=== PATIENT | male | born 1970 | race Caucasian/White ===

== ENCOUNTER → 2018-04-13 | Outpatient (CLI) | payer BC ==
[~2018-04-13] MED LIST: ATOR10 PO; ATOR80 PO; CELE100 PO; Hydrochloroth12.5 MG PO; LISI5 PO; METF500 PO; METO50 PO; Metformin HCl1000 MG PO; PIOG15 PO; POTCHL10ER PO; [UNRECOGNIZED DRUG - OTHER]
[2018-04-13 16:07] LABS: BASOPHILS ABSOLUTE AUTO 0.04 K/mm3 (0.00-0.23); BASOPHILS PERCENT AUTO 1 % (0-2); EOSINOPHILS ABSOLUTE AUTO 0.15 K/mm3 (0.00-0.68); EOSINOPHILS PERCENT AUTO 2 % (0-6); Hemoglobin 13.6 g/dL (13.5-17.5); IMMATURE GRAN ABSOLUTE AUTO 0.03 K/mm3 (0.00-0.10); IMMATURE GRAN PERCENT AUTO 0 % (0-1); LYMPHOCYTES ABSOLUTE AUTO 2.28 K/mm3 (0.84-5.20); LYMPHOCYTES PERCENT AUTO 34 % (21-46); MONOCYTES ABSOLUTE AUTO 0.55 K/mm3 (0.16-1.47); MONOCYTES PERCENT AUTO 8 % (4-13); Mean Corpuscular HGB 27.3 pg (26.0-34.0); Mean Corpuscular Volume 80 fL (80-100); Mean Platelet Volume 9.7 fL (9.1-12.4); NEUTROPHILS ABSOLUTE AUTO 3.72 K/mm3 (1.96-9.15); NEUTROPHILS PERCENT AUTO 55 % (41-73); Platelet Count 246 K/mm3 (150-400); RDW Coefficient Variation 13.8 % (11.7-14.2); Red Blood Cell Count 4.99 M/mm3 (4.30-5.90); White Blood Cell Count 6.77 K/mm3 (4.00-11.30)
== END | disposition home or self-care (01) ==
LOC: LAB EV 16:04 → LAB SHORT 16:04
PROVIDERS: Physician Assistant
DX: R07.89 Other chest pain (principal)
CPT/HCPCS: 85025

== ENCOUNTER → 2020-03-06 | Outpatient (CLI) | payer BC | END | disposition home or self-care (01) | LOC: PLD 12:29 → LAB SHORT 12:29 | DX: L57.0 Actinic keratosis (principal) | CPT/HCPCS: 88305 ==

== ENCOUNTER 2024-05-26 08:15 | Day surgery (SDC) | payer OTHER, BC ==
[~2024-05-26] VITALS: Ht 172.7 cm; Wt 95.4 kg
[~2024-05-26 08:15] MED LIST changes: +ALBU90OI INH; +ATORVASTATIN CA80 M1 PO; +Aspir 8181 MG PO; +CYCL10 PO; +DEPO-TESTO200 MG/1 M; +FURO20 PO; +GABA300 PO; +GLIP5 PO; +JARDIANCE10 MG PO; +LISINOPRIL-HCT1 EACH PO; +METFORMIN HCL1000 MG PO; +NEURONTIN600 MG PO; +OZEMPIC1 MG/0.72 SC
[2024-05-26] MEDS ORDERED: Lactated Ringer's 1,000 ML IV ONE (09:43)
--- NOTE | 2024-05-26 10:08 | NUR ---
05/26/24 Adam8 VANDANA GOLDSTEIN pt resting, states all needs are met at this time. Will josephils up, call light in reach
[2024-05-26] MEDS ORDERED: Dexamethasone Sod Phos 10 MG/ML 1ML VIAL ONE (10:12)
[2024-05-26] MEDS ORDERED: FentaNYL Citrate 50 MCG/ML 2 ML Injection ONE ×2 (10:12→12:00)
[2024-05-26] MEDS ORDERED: Ondansetron HCl 2 MG / ML 2ML Vial ONE ×2 (10:12→12:00)
[2024-05-26] MEDS ORDERED: propofoL 20 ML IV ONE (10:12)
[2024-05-26] MEDS ORDERED: Ketorolac Tromethamine 30mg Vial ONE (10:13)
[2024-05-26] MEDS ORDERED: EPINEPhrine HCl 1 MG/ML 1ML Amp ONE (10:44)
[2024-05-26] MEDS ORDERED: Lidocaine 2%-Epineph 1:100000 20 ML MDV ONE (10:44)
[2024-05-26] MEDS ORDERED: Midazolam HCl 1MG / ML 2ML Vial ONE (10:47)
[2024-05-26] MEDS ORDERED: CeFAZolin Sodium 1000 mg Vial ONE (11:10)
[2024-05-26] MEDS ORDERED: Ketamine HCl 100 MG / ML 5ML Vial ONE (12:37)
[2024-05-26] MEDS ORDERED: HYDROmorphone HCl/Pf 1MG SYR ONE (12:39)
--- NOTE | 2024-05-26 12:47 | NUR ---
05/26/[address] BREEZY Joshi AT BEDSIDE. 30 KETAMINE ADMINISTERED AND 30MCG PRESIDEX ADMINISTERED BY DR TIJERINA. 1MG OF DILAUDID ADMINISTERED BY RN PER DR TJIERINA VERBAL ORDER. PAIN WAS 10/10. WILL REASSESS.
[2024-05-26 13:35] VITALS: BP 130/84
== END 2024-05-26 13:27 | disposition home or self-care (01) ==
LOC: ORSCSDS 08:15
PROVIDERS: Orthopaedic Surgery
PROC: 0SBD4ZZ Excision of Left Knee Joint, Percutaneous Endoscopic Approach (ICD-10-PCS; principal; 2024-05-26 09:45)
DX: S83.242A Other tear of medial meniscus, current injury, left knee, initial encounter (principal); S83.282A Other tear of lateral meniscus, current injury, left knee, initial encounter; M94.262 Chondromalacia, left knee; I10 Essential (primary) hypertension; I25.10 Atherosclerotic heart disease of native coronary artery without angina pectoris; Z87.891 Personal history of nicotine dependence; E11.9 Type 2 diabetes mellitus without complications; I25.2 Old myocardial infarction; E66.9 Obesity, unspecified; Z68.32 Body mass index [BMI] 32.0-32.9, adult; Z79.899 Other long term (current) drug therapy; Z79.85 Long-term (current) use of injectable non-insulin antidiabetic drugs; E78.5 Hyperlipidemia, unspecified; F17.220 Nicotine dependence, chewing tobacco, uncomplicated; Z79.84 Long term (current) use of oral hypoglycemic drugs
CPT/HCPCS: 82947; J0171; J0690; J1100; J1171; J1885; J2250; J2405; J2704; J3010